=== PATIENT | male | born 1980 | race Two or more races ===

== ENCOUNTER 2020-01-16 09:58 | Emergency (ER) | payer OTHER ==
[~2020-01-16] VITALS: Ht 177.8 cm; Wt 103.9 kg
[2020-01-16] MEDS ORDERED: TOPROL XL25 M1 (10:08)
[2020-01-16] MEDS ORDERED: LEVAQUIN500 MG PO ×2 (19:33)
[2020-01-16] MEDS ORDERED: TAMS0.4C PO ×2 (19:33)
== END 2020-01-16 19:45 | disposition home or self-care (01) ==
LOC: ER 09:58
DX: R33.8 Other retention of urine (principal); N13.39 Other hydronephrosis; Z03.818 Encounter for observation for suspected exposure to other biological agents ruled out

== ENCOUNTER 2020-01-17 15:16 | Emergency (ER) | payer OTHER ==
[~2020-01-17] VITALS: Ht 177.8 cm; Wt 103.9 kg
[~2020-01-17 15:16] MED LIST: LEVAQUIN500 MG PO; TAMS0.4C PO; TOPROL XL25 M1
== END 2020-01-17 18:42 | disposition home or self-care (01) ==
LOC: ER 15:16
DX: M54.5 Low back pain (principal)

== ENCOUNTER 2020-01-30 19:52 | Emergency (ER) | payer OTHER ==
[~2020-01-30] VITALS: Ht 177.8 cm; Wt 104.3 kg
== END 2020-01-31 01:11 | disposition home or self-care (01) ==
LOC: ER 19:52
DX: N39.0 Urinary tract infection, site not specified (principal); N40.0 Benign prostatic hyperplasia without lower urinary tract symptoms

== ENCOUNTER 2022-12-14 11:35 | Emergency (ER) | payer OTHER ==
[~2022-12-14] VITALS: Ht 177.8 cm; Wt 115.7 kg
== END 2022-12-14 17:14 | disposition home or self-care (01) ==
LOC: ER 11:35
DX: N39.0 Urinary tract infection, site not specified (principal); B96.1 Klebsiella pneumoniae [K. pneumoniae] as the cause of diseases classified elsewhere; Z88.6 Allergy status to analgesic agent; Z88.2 Allergy status to sulfonamides; Z20.822 Contact with and (suspected) exposure to COVID-19

== ENCOUNTER 2023-12-16 07:46 | Emergency (ER) | payer OTHER ==
[~2023-12-16] VITALS: Ht 179.1 cm; Wt 117.9 kg
[2023-12-16] MEDS ORDERED: ACETAMINOPHEN 500 MG GEL..CAP PO ONE (07:57)
[2023-12-16] MEDS ORDERED: ACETAMINOPHEN 500 MG GEL..CAP PO STA (08:44)
[2023-12-16 09:26] LABS: HEMATOCRIT 40.7 % (39.0-48.0); HEMOGLOBIN 13.8 g/dL (13-16.00); MEAN CELL VOLUME 92.3 fL (80.0-100.00); MEAN CORPUSCULAR HEMOGLOBIN 31.3 pg (27.00-32.0); MEAN CORPUSCULAR HGB CONC 33.9 g/dl (32.0-36.0); PLATELET COUNT 185 K/uL (150-450); RED BLOOD COUNT 4.41 M/uL (4.00-6.00); RED CELL DISTRIBUTION WIDTH 13.6 % (11.5-14.5)
[2023-12-16 09:49] LABS: PH,URINE 6.5 (5.0-8.0); URINE APPEARANCE Clear; URINE BILIRRUBIN Negative (NEGATIVE); URINE BLOOD Small; URINE COLOR Yellow; URINE GLUCOSE Negative (NEGATIVE); URINE LEUKOCYTE Small; URINE NITRATE Negative; URINE PROTEIN Negative (NEGATIVE); URINE UROBILINOGEN 0.2 E.U./dl
[2023-12-16 09:53] LABS: URINE EPITHELIAL CELLS 4.9 uL (0.0-38.8); URINE WBC 121.9 uL (0.0-23.2)
[2023-12-16 10:33] LABS: CALCIUM 8.8 mg/dL (8.5-10.1); CREATININE SERUM 0.71 mg/dL (0.70-1.30); GFR 122.88; POTASSIUM 3.88 mEq/L (3.5-5.1)
== END 2023-12-16 10:53 | disposition home or self-care (01) ==
LOC: ER 07:47
PROVIDERS: General Practice
DX: N39.0 Urinary tract infection, site not specified (principal); Z20.822 Contact with and (suspected) exposure to COVID-19; I10 Essential (primary) hypertension; Z88.6 Allergy status to analgesic agent; Z88.2 Allergy status to sulfonamides